=== PATIENT | male | born 1980 | race Caucasian/White ===

== ENCOUNTER 2021-03-25 03:20 | Emergency (ER) | payer SELFPAY ==
[~2021-03-25] VITALS: Ht 177.8 cm; Wt 85.7 kg
[2021-03-25 03:25] VITALS: BP 130/83
--- NOTE | 2021-03-25 03:25 | NUR ---
TO BED AMBULATORY
--- NOTE | 2021-03-25 03:30 | NUR ---
PATIENT PRESENTS TO ED WITH C/O COUGH . DENIES N/V/D; SKIN IS PINK/WARM/DRY; AAOX4 WITH EVEN AND STEADY GAIT; LUNGS CLEAR BL; HR EVEN AND REGULAR; PT DENIES ANY FEVER, CP, SOB, OR COUGH AT THIS TIME VSS; PATIENT POSITIONED FOR COMFORT; HOB ELEVATED; BEDRAILS UP X2; BED DOWN. OCCASIONAL COUGH IS NOTED. ER MD MADE AWARE OF PT STATUS.
--- NOTE | 2021-03-25 03:45 | NUR ---
FRANNIE SWAB OBTAINED
[2021-03-25] MEDS ORDERED: cefTRIAXone 1,000 MG in LIDOCAINE MPF 1% 2.1 ML IM ONE (05:45)
[2021-03-25] MEDS ORDERED: AZITHROMYCIN 250 MG TAB PO ONE (05:45)
[2021-03-25] MEDS ORDERED: ALBUTEROL SULFATE/IPRATROPIU 3 ML SOL IH ONE (05:45)
[2021-03-25] MEDS ORDERED: methylPREDNISolone SS 125 MG/2 ML VIAL IM ONE (05:45)
[2021-03-25] MEDS ORDERED: PRED20TA6 PO (05:49)
[2021-03-25] MEDS ORDERED: AMOX-1000 PO (05:49)
[2021-03-25] MEDS ORDERED: ALBU0.0912 INH (05:49)
[2021-03-25] MEDS ORDERED: AZIT250T4 PO (05:49)
--- NOTE | 2021-03-25 05:49 | NUR ---
R.TAriel AT BEDSIDE
[2021-03-25] MEDS ORDERED: cefTRIAXone 1,000 MG VIAL ONE (05:51)
[2021-03-25] MEDS ORDERED: LIDOCAINE MPF 1% 5 ML ONE (05:51)
[2021-03-25 06:35] VITALS: BP 130/83
--- NOTE | 2021-03-25 06:35 | NUR ---
Patient discharged with v/s stable. Written and verbal after care instructions given and explained. Patient alert, oriented and verbalized understanding of instructions. Ambulatory with steady gait. All questions addressed prior to discharge. ID band removed. Patient advised to follow up with PMD. Rx of ALBUTEROL. AMOXICILLIN, ZITHROMAX, PREDNISONE given. Patient educated on indication of medication including possible reaction and side effects. Opportunity to ask questions provided and answered.
== END 2021-03-25 06:35 | disposition home or self-care (01) ==
LOC: MED 03:20
DX: J18.9 Pneumonia, unspecified organism (principal); Z20.822 Contact with and (suspected) exposure to COVID-19
CPT/HCPCS: 71045; 87426; 94640; 96372; 99284; J0696; J2001; J2930

== ENCOUNTER 2022-09-19 00:58 | Inpatient (IN) | payer OTHER ==
[~2022-09-19] VITALS: Ht 177.8 cm; Wt 102.1 kg
[~2022-09-19 00:58] MED LIST: ALBU0.0912 INH; AMOX-1000 PO; AZIT250T4 PO; PRED20TA6 PO
[2022-09-19 01:01] VITALS: BP 181/119
--- NOTE | 2022-09-19 01:06 | NUR ---
TO BED AMBULATORY
[2022-09-19] MEDS ORDERED: MORPHINE SULFATE 4 MG/ML SYR IVP ONE ×2 (01:20→04:20)
[2022-09-19] MEDS ORDERED: NACL 0.9% 1,000 ML IV ONE (01:20)
[2022-09-19] MEDS ORDERED: ONDANSETRON 4 MG/2 ML VIAL IVP ONE ×2 (01:20→04:10)
--- NOTE | 2022-09-19 01:25 | NUR ---
18G IV TO LAC. BLOOD DRAWN VIA IV START
--- NOTE | 2022-09-19 01:30 | NUR ---
pt is alert and oriented x 4 came in for epigastric pain with episode of nausea and vomitting x4 at home. pt has pain of 10/10. room air and ambulatory.
[2022-09-19 01:36] LABS: BASOPHILS # (AUTO) 0.1 K/uL (0.00-0.22); BASOPHILS % (AUTO) 1.5 % (0.0-2.0); EOSINOPHILS # (AUTO) 0.2 K/uL (0-0.4); EOSINOPHILS % (AUTO) 2.6 % (0.0-4.0); HEMATOCRIT 40.9 % (36-52); LYMPHOCYTES # (AUTO) 1.9 K/uL (2.0-11.5); LYMPHOCYTES % (AUTO) 24.6 % (20.5-51.1); MEAN CORPUSCULAR HEMOGLOBIN 29 pg (27-31); MEAN CORPUSCULAR HGB CONC 34 g/dL (33-37); MEAN CORPUSCULAR VOLUME 84.3 fL (80-94); MONOCYTES # (AUTO) 0.4 K/uL (0.8-1.0); MONOCYTES % (AUTO) 4.7 % (1.7-9.3); NEUTROPHILS # (AUTO) 5.2 K/uL (1.8-7.7); NEUTROPHILS % (AUTO) 66.6 % (42.2-75.2); PLATELET COUNT (AUTO) 203 K/uL (140-450); RED BLOOD CELL COUNT(AUTO) 4.85 MIL/uL (4.20-6.10); RED CELL DISTRIBUTION WIDTH 12.9 % (11.6-13.7); WHITE BLOOD COUNT (AUTO) 7.8 K/uL (4.8-10.8)
[2022-09-19 01:49] LABS: ALBUMIN 0.4 g/dL (3.4-5.0); ANION GAP 11.8 (8-16); CARBON DIOXIDE 30.9 mmol/L (21-32); POTASSIUM 3.7 mmol/L (3.5-5.1); TOTAL BILIRUBIN 0.3 mg/dL (0.0-1.0)
[2022-09-19 02:06] LABS: CREATININE 0.9 mg/dL (0.6-1.3)
[2022-09-19 02:32] LABS: APPEARANCE,URINE CLOUDY (CLEAR); BILIRUBIN,URINE NEGATIVE (NEGATIVE); BLOOD, URINE 1+ (NEGATIVE); COLOR,URINE YELLOW (YELLOW); LEUKOCYTE ESTERASE ,URINE 3+ (NEGATIVE); NITRITE, URINE NEGATIVE (NEGATIVE); UGLUCOSE 1+ (NEGATIVE)
[2022-09-19 02:42] LABS: RBC,URINE 0-5 /HPF (0-5)
[2022-09-19] MEDS ORDERED: ONDANSETRON 4 MG/2 ML VIAL ONE (04:12)
[2022-09-19] MEDS ORDERED: ENALAPRILAT 2.5 MG/2 ML VIAL IVP ONE (04:20)
[2022-09-19] MEDS ORDERED: cefTRIAXone 1,000 MG VIAL ONE (04:24)
--- NOTE | 2022-09-19 04:30 | NUR ---
pt asked for urinal. he has some episode of vomitting.
[2022-09-19] MEDS ORDERED: hydrALAZINE 20 MG/ML VIAL IVP PRN (04:35)
[2022-09-19] MEDS ORDERED: HALOPERIDOL IM 5 MG/ML VIAL IVP ONE (04:45)
[2022-09-19] MEDS ORDERED: diphenhydrAMINE 50 MG/ML VIAL IVP ONE (04:45)
--- NOTE | 2022-09-19 05:00 | NUR ---
pt has episode of vomitting. pt is cooperative. bed lower. side rail up
[2022-09-19] MEDS ORDERED: LABETALOL 20 MG/4 ML VIAL IVP ONE (06:05)
--- NOTE | 2022-09-19 07:25 | NUR ---
Report recieved from TRINI Haider for transfer of care.
--- NOTE | 2022-09-19 07:46 | NUR ---
Patient will be admitted to care of Dr. Bravo. Admited to Telemetry. Will go to room ICU 3. Belongings list completed. Report to TRINI Doty .
--- NOTE | 2022-09-19 07:50 | NUR ---
PT TRANSFERRED TO ICU 3 FROM ER. PT ABLE TO SLIDE OVER INTO ICU BED WITH ASSISTANCE. PT COMPLAINING OF EPIGASTRIC PAIN AT THIS TIME. DR. QUINTERO PAGED FOR ORDERS. BED IN LOW, LOCKED POSITION. CALL LIGHT WITHIN REACH.
[2022-09-19 08:00] VITALS: BP 153/98
[2022-09-19] MEDS ORDERED: ONDANSETRON 4 MG/2 ML VIAL IVP PRN ×2 (08:15→09:10)
[2022-09-19] MEDS ORDERED: NACL 0.9% 1,000 ML IV SCH ×2 (08:15→09:10)
[2022-09-19] MEDS ORDERED: MORPHINE SULFATE 2 MG/ML SYR IVP PRN (08:15)
[2022-09-19] MEDS ORDERED: lisinopriL 20 MG TAB PO SCH (09:00)
[2022-09-19] MEDS ORDERED: ACETAMINOPHEN 325 MG TAB PO PRN (09:10)
[2022-09-19] MEDS ORDERED: MAG SULF 2000 MG/WATER PREMIX 50 ML IV PRN (09:10)
[2022-09-19] MEDS ORDERED: HYDROcodone/APAP 7.5/325 MG 1 TAB PO PRN (09:10)
[2022-09-19] MEDS ORDERED: POTASSIUM CHLORIDE 10 MEQ TABER PO PRN (09:10)
[2022-09-19] MEDS ORDERED: NITROGLYCERIN 0.4 MG TAB SL PRN (09:10)
[2022-09-19] MEDS ORDERED: ALUMINUM HYD/MAG/SIMETHICONE 30 ML UDC PO SCH (09:16)
[2022-09-19] MEDS ORDERED: DICYCLOMINE HCL LIQUID 10 MG/5 ML UDC PO SCH (09:30)
--- NOTE | 2022-09-19 10:07 | NUR ---
PATIENT HAS BEEN SCREENED AND CATEGORIZED MODERATE NUTRITION RISK. PATIENT WILL BE SEEN WITHIN 3-5 DAYS OF ADMISSION. REVIEWED BY DANNIE FISCHER RD
[2022-09-19 10:31] LABS: PROTHROMBIN TIME 10.1 secs (10.8-13.4)
[2022-09-19 11:09] LABS: AMYLASE 28 U/L (25-115); CHOL/HDL RATIO 3.5 (1-4.5); FREE T4 (FREE THYROXINE) 1.34 ng/dL (0.76-1.46); HDL CHOLESTEROL 45 mg/dL (40-60); LDL (CALC) 95 mg/dL (60-100); LIPASE 133 U/L (73-393); THYROID STIMULATING HORMONE 0.68 uIU/mL (0.34-3.74); TRIGLYCERIDES 81 mg/dL (30-150)
[2022-09-19 12:00] VITALS: BP 130/70
[2022-09-19] MEDS ORDERED: LACTULOSE 20 GM/30 ML UDC PO SCH (12:00)
[2022-09-19 16:00] VITALS: BP 140/91
--- NOTE | 2022-09-19 19:20 | NUR ---
SBAR REPORT GIVEN TO GAIL FELIZ, ALL CARES ENDORSED.
--- NOTE | 2022-09-19 19:39 | NUR ---
PT ALERT & ORIENTED X4. ABLE TO MAKE NEEDS KNOWN. ON ROOM AIR. CARDIAC DIET. CONTINENT AND USES URINAL. SR TO BEDSIDE MONITOR AT THIS TIME. LEFT AC 18G PERIPHERAL IV ACCESS. NO COMPLAINTS OR REQUESTS MADE AT THIS TIME.
[2022-09-19 20:00] VITALS: BP 105/70
[2022-09-19] MEDS: METOPROLOL 25 MG TAB PO SCH (20:27)
[2022-09-19] MEDS: DOCUSATE SODIUM 100 MG GELCAP PO SCH (20:28)
[2022-09-19] MEDS ORDERED: METOPROLOL 25 MG TAB PO SCH (21:00)
[2022-09-19] MEDS ORDERED: ATORVASTATIN 20 MG TAB PO SCH (21:00)
--- NOTE | 2022-09-19 22:00 | NUR ---
PM MEDS GIVEN.
[2022-09-20] VITALS: BP 103/61
--- NOTE | 2022-09-20 | NUR ---
PT RESTING. DENIES C/O OF PAIN.
--- NOTE | 2022-09-20 03:00 | NUR ---
PT ASLEEP. BREATHING EVEN AND UNLABORED.
[2022-09-20 04:00] VITALS: BP 106/62
[2022-09-20 06:20] LABS: BASOPHILS % (AUTO) 0.6 % (0.0-2.0); EOSINOPHILS # (AUTO) 0.1 K/uL (0-0.4); EOSINOPHILS % (AUTO) 1.5 % (0.0-4.0); HEMATOCRIT 40.9 % (36-52); HEMOGLOBIN 13.7 g/dL (12.0-18.0); LYMPHOCYTES # (AUTO) 2.5 K/uL (2.0-11.5); LYMPHOCYTES % (AUTO) 27.8 % (20.5-51.1); MEAN CORPUSCULAR HEMOGLOBIN 29 pg (27-31); MEAN CORPUSCULAR HGB CONC 34 g/dL (33-37); MONOCYTES # (AUTO) 0.4 K/uL (0.8-1.0); MONOCYTES % (AUTO) 4.5 % (1.7-9.3); NEUTROPHILS # (AUTO) 5.9 K/uL (1.8-7.7); NEUTROPHILS % (AUTO) 65.6 % (42.2-75.2); PLATELET COUNT (AUTO) 209 K/uL (140-450); RED BLOOD CELL COUNT(AUTO) 4.76 MIL/uL (4.20-6.10); RED CELL DISTRIBUTION WIDTH 13.6 % (11.6-13.7)
--- NOTE | 2022-09-20 07:25 | NUR ---
REPORT GIVEN TO AM SHIFT TRINI GARCIAO.
--- NOTE | 2022-09-20 07:30 | NUR ---
RECEIVED REPORT FROM OIM ARCHITECT. PT ALERT & ORIENTED X4. ABLE TO MAKE NEEDS KNOWN. ON ROOM AIR. CARDIAC DIET. CONTINENT AND USES URINAL. SR TO BEDSIDE MONITOR AT THIS TIME. LEFT AC 18G PERIPHERAL IV ACCESS. NO COMPLAINTS OR REQUESTS MADE AT THIS TIME. AWAITING GI CONSULT.
[2022-09-20 08:00] VITALS: BP 134/86
[2022-09-20 08:07] LABS: MAGNESIUM 2.2 mg/dL (1.8-2.4); PHOSPHORUS 3.5 mg/dL (2.5-4.9)
[2022-09-20 08:11] LABS: ANION GAP 12.4 (8-16); CARBON DIOXIDE 28.1 mmol/L (21-32); CREATININE 0.9 mg/dL (0.6-1.3); POTASSIUM 3.5 mmol/L (3.5-5.1)
[2022-09-20] MEDS ORDERED: lisinopriL 5 MG TAB PO SCH ×2 (09:00)
[2022-09-20] MEDS ORDERED: ASPIRIN 81 MG TAB.CHEW PO SCH (09:00)
[2022-09-20] MEDS: PANTOPRAZOLE 40 MG INJ VIAL IVP SCH (09:13)
[2022-09-20] MEDS: DOCUSATE SODIUM 100 MG GELCAP PO SCH ×2 (09:13→20:30)
[2022-09-20] MEDS: METOPROLOL 25 MG TAB PO SCH ×2 (09:13→20:30)
[2022-09-20] MEDS: LACTULOSE 20 GM/30 ML UDC PO SCH (09:13)
--- NOTE | 2022-09-20 09:20 | NUR ---
DUE MEDS GIVEN. PLAN OF CARE DISCUSSED
--- NOTE | 2022-09-20 11:30 | NUR ---
SBAR REPORT RECEIVED FROM EMERALD FELIZ, ALL CARES ASSUMED.
[2022-09-20 12:00] VITALS: BP 115/73
[2022-09-20] MEDS ORDERED: diphenhydrAMINE 50 MG/ML VIAL ONE (13:15)
[2022-09-20] MEDS ORDERED: fentaNYL citrate 0.05 MG/ML VIAL ONE (13:15)
[2022-09-20] MEDS ORDERED: MIDAZOLAM 5 MG/5 ML VIAL ONE (13:16)
--- NOTE | 2022-09-20 13:30 | NUR ---
PT TO OR FOR EGD. CONSENT SIGNED, REPORT GIVEN TO LONG DISTANCE BILLING OPERATORTRINI LIRIANO. PT WILL GO TO ROOM 121 B AFTER EGD. BELONGINGS TAKEN TO PT ROOM AND PLACED IN BEDSIDE DRAWER, DEANDRA FELIZ AND HALEIGH FELIZ AWARE.
[2022-09-20] MEDS: MIDAZOLAM 5 MG/5 ML VIAL IV ONE ×2 (13:38→14:41)
[2022-09-20] MEDS: fentaNYL citrate 0.05 MG/ML VIAL IVP ONE ×2 (13:39→14:41)
--- NOTE | 2022-09-20 13:46 | NUR ---
CALLED REPORT TO HALEIGH FELIZ, ALL CARES ENDORSED. ADVISED HALEIGH THAT PT IS IN OR AND WILL BE BROUGHT TO 121B AFTER EGD AND THAT PT BELONGINGS ARE IN BEDSIDE [facility].
--- NOTE | 2022-09-20 14:10 | NUR ---
RECEIVED PATIENT FROM GI, REPORT GIVEN BY TRINI LIRIANO. PATIENT ASLEEP, AROUSABLE, VITALS TAKEN STABLE, DENIES PAIN. ON MONITOR SHOWS SR. HEPLOCK ON THE LEFT AC DRY AND INTACT. CALL LIGHT WITHIN REACH. WILL CONTINUE TO MONITOR.
[2022-09-20 16:00] VITALS: BP 140/75
--- NOTE | 2022-09-20 19:20 | NUR ---
REPORT GIVEN TO THE ENGINEERING INSTRUCTOR FOR CONTINUITY OF CARE. IN STABLE CONDITION.
--- NOTE | 2022-09-20 19:25 | NUR ---
RECEIVED PATIENT FROM AM NURSE FOR CONTINUITY OF CARE. PT IS STABLE
[2022-09-20 20:00] VITALS: BP 110/74
[2022-09-21] VITALS: BP 122/64
--- NOTE | 2022-09-21 | NUR ---
PATIENT SLEEPING IN BED COMFORTABLY, ALL SAFETY MEASURES IN PLACE
[2022-09-21 04:00] VITALS: BP 127/83
[2022-09-21 05:26] LABS: BASOPHILS % (AUTO) 0.5 % (0.0-2.0); EOSINOPHILS # (AUTO) 0.2 K/uL (0-0.4); EOSINOPHILS % (AUTO) 2.2 % (0.0-4.0); HEMATOCRIT 38.2 % (36-52); HEMOGLOBIN 13.3 g/dL (12.0-18.0); LYMPHOCYTES # (AUTO) 2.6 K/uL (2.0-11.5); LYMPHOCYTES % (AUTO) 30.9 % (20.5-51.1); MEAN CORPUSCULAR HEMOGLOBIN 29 pg (27-31); MEAN CORPUSCULAR HGB CONC 35 g/dL (33-37); MEAN CORPUSCULAR VOLUME 83.9 fL (80-94); MONOCYTES # (AUTO) 0.4 K/uL (0.8-1.0); MONOCYTES % (AUTO) 4.4 % (1.7-9.3); NEUTROPHILS # (AUTO) 5.1 K/uL (1.8-7.7); PLATELET COUNT (AUTO) 185 K/uL (140-450); RED BLOOD CELL COUNT(AUTO) 4.56 MIL/uL (4.20-6.10); RED CELL DISTRIBUTION WIDTH 13.2 % (11.6-13.7); WHITE BLOOD COUNT (AUTO) 8.2 K/uL (4.8-10.8)
[2022-09-21 06:38] LABS: CARBON DIOXIDE 31.5 mmol/L (21-32); CREATININE 0.9 mg/dL (0.6-1.3); POTASSIUM 3.5 mmol/L (3.5-5.1)
[2022-09-21 06:46] LABS: MAGNESIUM 2.1 mg/dL (1.8-2.4); PHOSPHORUS 2.4 mg/dL (2.5-4.9)
[2022-09-21 08:00] VITALS: BP 132/83
[2022-09-21] MEDS ORDERED: lisinopriL 20 MG TAB PO SCH (09:00)
[2022-09-21] MEDS: DOCUSATE SODIUM 100 MG GELCAP PO SCH (09:01)
[2022-09-21] MEDS: METOPROLOL 25 MG TAB PO SCH (09:01)
[2022-09-21] MEDS: LACTULOSE 20 GM/30 ML UDC PO SCH (09:02)
[2022-09-21] MEDS: PANTOPRAZOLE 40 MG INJ VIAL IVP SCH (09:02)
[2022-09-21] MEDS ORDERED: FAMO-90 PO (09:12)
[2022-09-21] MEDS ORDERED: METO25TA PO (09:12)
[2022-09-21] MEDS ORDERED: LISI20TA29 PO (09:12)
[2022-09-21 13:43] VITALS: BP 127/83
--- NOTE | 2022-09-21 14:25 | NUR ---
PATIENT DISCHARGED HOME. STABLE UPON DISCHARGE.
== END 2022-09-21 14:25 | disposition home or self-care (01) | DRG 393 ==
LOC: MED 00:58 → MTU 04:35 → MIC 06:51 → MTU 09-20 13:47
PROC: 0DB68ZX Excision of Stomach, Via Natural or Artificial Opening Endoscopic, Diagnostic (ICD-10-PCS; principal; 2022-09-21)
DX: K31.7 Polyp of stomach and duodenum (principal); E43 Unspecified severe protein-calorie malnutrition; N39.0 Urinary tract infection, site not specified; I42.9 Cardiomyopathy, unspecified; K27.9 Peptic ulcer, site unspecified, unspecified as acute or chronic, without hemorrhage or perforation; K29.80 Duodenitis without bleeding; K20.90 Esophagitis, unspecified without bleeding; I16.0 Hypertensive urgency; K76.82 Hepatic encephalopathy; E66.9 Obesity, unspecified; Z20.822 Contact with and (suspected) exposure to COVID-19; Z68.32 Body mass index [BMI] 32.0-32.9, adult
CPT/HCPCS: 36415; 71045; 76705; 80048; 80053; 81001; 82140; 82150; 83036; 83605; 83690; 83735; 83880; 84100; 84439; 84443; 84484; 85025; 85610; 85730; 86677; 87040; 87081; 87086; 88305; 88313; 96361; 96365; 96375; 96376; 99285; C9113; J0360; J0696; J1200; J1630; J1644; J2250; J2270; J2405; J3010; J3490; J7030; Q0092; Q9967

== ENCOUNTER 2022-10-01 06:38 | Emergency (ER) | payer SELFPAY ==
[~2022-10-01] VITALS: Ht 180.3 cm; Wt 81.6 kg
[~2022-10-01 06:38] MED LIST changes: -ALBU0.0912 INH; -AMOX-1000 PO; -AZIT250T4 PO; +FAMO-90 PO; +LISI20TA29 PO; +METO25TA PO; -PRED20TA6 PO
[2022-10-01 06:44] VITALS: BP 184/96
--- NOTE | 2022-10-01 06:53 | NUR ---
PT TO 11
--- NOTE | 2022-10-01 07:18 | NUR ---
RECEIVED REPORT FROM TRINI CASTILLO. ASSUMED CARE AT THIS TIME.
[2022-10-01] MEDS ORDERED: DICYCLOMINE HCL LIQUID 20 MG, ALUMINUM HYD/MAG/SIMETHICONE 30 ML, LIDOCAINE VISCOUS 2% ... PO ONE ×3 (07:20)
[2022-10-01] MEDS ORDERED: ALUMINUM HYD/MAG/SIMETHICONE 30 ML UDC ONE (07:25)
[2022-10-01] MEDS ORDERED: DICYCLOMINE HCL LIQUID 10 MG/5 ML UDC ONE (07:25)
--- NOTE | 2022-10-01 07:28 | NUR ---
XRAY AT BEDSIDE.
--- NOTE | 2022-10-01 07:30 | NUR ---
42M PRESENTS TO ED WITH C/O EPIGASTRIC PAIN SINCE THIS MORNING. PT REPORTS A SUDDEN ONSET OF CONSTANT, SHARP LIKE, PAIN TO EPIGASTRIC REGION RADIATING TO MID BACK AND NAUSEA. PT REPORTS 1 EPISODE OF VOMITING AN HOUR AGO. PT DENIES DIARRHEA, FEVERS, CHILLS OR SOB.
[2022-10-01 07:42] LABS: BASOPHILS % (AUTO) 0.3 % (0.0-2.0); EOSINOPHILS # (AUTO) 0.1 K/uL (0-0.4); EOSINOPHILS % (AUTO) 0.5 % (0.0-4.0); HEMATOCRIT 42.9 % (36-52); HEMOGLOBIN 14.1 g/dL (12.0-18.0); LYMPHOCYTES # (AUTO) 1.9 K/uL (2.0-11.5); LYMPHOCYTES % (AUTO) 14.8 % (20.5-51.1); MEAN CORPUSCULAR HEMOGLOBIN 29 pg (27-31); MEAN CORPUSCULAR HGB CONC 33 g/dL (33-37); MEAN CORPUSCULAR VOLUME 86.8 fL (80-94); MONOCYTES # (AUTO) 0.5 K/uL (0.8-1.0); MONOCYTES % (AUTO) 4.1 % (1.7-9.3); NEUTROPHILS # (AUTO) 10.4 K/uL (1.8-7.7); NEUTROPHILS % (AUTO) 80.3 % (42.2-75.2); PLATELET COUNT (AUTO) 178 K/uL (140-450); RED BLOOD CELL COUNT(AUTO) 4.94 MIL/uL (4.20-6.10); RED CELL DISTRIBUTION WIDTH 13.3 % (11.6-13.7)
[2022-10-01 07:57] LABS: APPEARANCE,URINE HAZY (CLEAR); BILIRUBIN,URINE NEGATIVE (NEGATIVE); BLOOD, URINE 1+ (NEGATIVE); COLOR,URINE YELLOW (YELLOW); LEUKOCYTE ESTERASE ,URINE TRACE (NEGATIVE); NITRITE, URINE NEGATIVE (NEGATIVE); UGLUCOSE TRACE (NEGATIVE)
[2022-10-01 08:03] LABS: ANION GAP 15.1 (8-16); ASPARTATE AMINOTRANSFERASE 93 U/L (15-37); CARBON DIOXIDE 23.2 mmol/L (21-32); CHLORIDE 103 mmol/L (98-107); CREATININE 0.7 mg/dL (0.6-1.3); GFR ARICAN-AMERICAN 158 mL/min (>90); GLUCOSE 157 mg/dL (74-106); LIPASE 321 U/L (73-393); POTASSIUM 5.3 mmol/L (3.5-5.1); SODIUM SERUM 136 mmol/L (136-145); TOTAL BILIRUBIN 0.6 mg/dL (0.0-1.0); UREA NITROGEN, BLOOD 14 mg/dL (7-18)
[2022-10-01 08:09] LABS: URINE AMORPHOUS URATE 1+ /HPF (None Seen)
[2022-10-01] MEDS ORDERED: ONDANSETRON 4 MG/2 ML VIAL IVP ONE (08:10)
[2022-10-01] MEDS ORDERED: NACL 0.9% 1,000 ML IV ONE (08:10)
[2022-10-01] MEDS ORDERED: KETOROLAC 15 MG/ML VIAL IVP ONE (08:10)
[2022-10-01 08:13] LABS: BARBITURATE, URINE NEGATIVE ng/ml (NEG <=200); BENZODIAZEPINE, URINE NEGATIVE ng/mL (NEG <=200); CANNABINOID, URINE NEGATIVE ng/mL (NEG <=50); COCAINE, URINE NEGATIVE ng/mL (NEG <=300); OPIATE, URINE NEGATIVE ng/mL (NEG <=2000); PHENCYCLIDINE SCREEN,URINE NEGATIVE ng/mL (NEG <=25)
[2022-10-01 09:00] VITALS: BP 144/100
[2022-10-01] MEDS ORDERED: METO25TA PO (09:11)
[2022-10-01] MEDS ORDERED: FAMO-90 PO (09:11)
[2022-10-01] MEDS ORDERED: LISI40TA12 PO (09:11)
[2022-10-01] MEDS ORDERED: ONDA-188 PO (09:11)
--- NOTE | 2022-10-01 10:00 | NUR ---
Patient discharged with v/s stable. Written and verbal after care instructions ABOUT GASTRITIS, VOMITING AND DEHYDRATION given and explained. Patient alert, oriented and verbalized understanding of instructions. Ambulatory with steady gait. All questions addressed prior to discharge. ID band removed. Patient advised to follow up with PMD. Rx of PEPCID, ZESTRIL, METOPROLOL AND ZOFRAN given. Patient educated on indication of medication including possible reaction and side effects. Opportunity to ask questions provided and answered.
== END 2022-10-01 10:00 | disposition home or self-care (01) ==
LOC: MED 06:38
DX: R10.13 Epigastric pain (principal); E86.0 Dehydration; R11.10 Vomiting, unspecified
CPT/HCPCS: 36415; 71045; 80053; 80305; 81001; 83690; 84484; 85025; 87086; 96361; 96374; 96375; 99285; J1885; J2405; J7030; Q0092

== ENCOUNTER 2023-12-29 03:45 | Emergency (ER) | payer MEDICAID, OTHER ==
[~2023-12-29] VITALS: Ht 177.8 cm; Wt 99.8 kg
[~2023-12-29 03:45] MED LIST changes: -LISI20TA29 PO; +LISI40TA12 PO; +ONDA-188 PO
[2023-12-29 03:48] VITALS: BP 200/121; PULSE 85; RESP 18; TEMP 98.2; O2SAT 96
[2023-12-29 04:20] LABS: BASOPHILS # (AUTO) 0.1 K/uL (0.00-0.22); BASOPHILS % (AUTO) 0.7 % (0.0-2.0); EOSINOPHILS # (AUTO) 0.2 K/uL (0-0.4); EOSINOPHILS % (AUTO) 2.2 % (0.0-4.0); HEMATOCRIT 44.1 % (36-52); HEMOGLOBIN 15.2 g/dL (12.0-18.0); LYMPHOCYTES # (AUTO) 2.1 K/uL (2.0-11.5); MEAN CORPUSCULAR HEMOGLOBIN 29 pg (27-31); MEAN CORPUSCULAR HGB CONC 34 g/dL (33-37); MEAN CORPUSCULAR VOLUME 84.9 fL (80-94); MONOCYTES # (AUTO) 0.4 K/uL (0.8-1.0); MONOCYTES % (AUTO) 4.6 % (1.7-9.3); NEUTROPHILS # (AUTO) 4.9 K/uL (1.8-7.7); NEUTROPHILS % (AUTO) 64.5 % (42.2-75.2); PLATELET COUNT (AUTO) 201 K/uL (140-450); RED BLOOD CELL COUNT(AUTO) 5.19 MIL/uL (4.20-6.10); WHITE BLOOD COUNT (AUTO) 7.6 K/uL (4.8-10.8)
[2023-12-29] MEDS: FAMOTIDINE 20 MG/2 ML VIAL IVP ONE (04:28)
[2023-12-29] MEDS: ALUMINUM HYD/MAG/SIMETHICONE 30 ML UDC PO ONE (04:29)
[2023-12-29 04:30] VITALS: TEMP 98.2
[2023-12-29 04:31] LABS: ANION GAP 14.3 (8-16); CALCIUM 8.6 mg/dL (8.5-10.1); CARBON DIOXIDE 28.6 mmol/L (21-32)
[2023-12-29 04:37] LABS: ALBUMIN 3.5 g/dL (3.4-5.0); BILIRUBIN,DIRECT 0.1 mg/dL (0.0-0.3); TOTAL BILIRUBIN 0.3 mg/dL (0.0-1.0); TOTAL PROTEIN, SERUM 7.4 g/dL (6.4-8.2)
[2023-12-29 04:43] LABS: POTASSIUM 2.9 mmol/L (3.5-5.1)
[2023-12-29] MEDS: MAG SULF 2000 MG/WATER PREMIX 50 ML IV ONE (04:48)
[2023-12-29] MEDS: POTASSIUM CHLORIDE 10 MEQ TABER PO ONE (04:56)
[2023-12-29] MEDS ORDERED: OMEP20EC11 PO (05:18)
[2023-12-29] MEDS ORDERED: SUCR1TAB56 PO (05:18)
[2023-12-29] MEDS ORDERED: METO25TA PO (05:18)
[2023-12-29] MEDS ORDERED: FAMO-90 PO (05:18)
[2023-12-29] MEDS ORDERED: LISI40TA12 PO (05:18)
[2023-12-29 06:00] VITALS: BP 155/91; PULSE 77; RESP 18; O2SAT 99
== END 2023-12-29 06:16 | disposition home or self-care (01) ==
LOC: MED 03:45
DX: K29.70 Gastritis, unspecified, without bleeding (principal); I10 Essential (primary) hypertension; E87.6 Hypokalemia; Z91.148 Patient's other noncompliance with medication regimen for other reason; Z90.49 Acquired absence of other specified parts of digestive tract; Z79.899 Other long term (current) drug therapy
CPT/HCPCS: 36415; 71045; 80048; 80076; 83690; 84484; 85025; 93005; 96365; 96366; 96375; 99285; J3475; J3490; Q0092